=== PATIENT | male | born 1955 | race Caucasian/White ===

== ENCOUNTER → 2017-11-15 | Outpatient (CLI) | payer BC | END | disposition home or self-care (01) | LOC: PCVCIMAG 07:57 | DX: I25.10 Atherosclerotic heart disease of native coronary artery without angina pectoris (principal); I10 Essential (primary) hypertension; E78.00 Pure hypercholesterolemia, unspecified; I42.9 Cardiomyopathy, unspecified; F17.200 Nicotine dependence, unspecified, uncomplicated; Z79.899 Other long term (current) drug therapy; Z79.82 Long term (current) use of aspirin | CPT/HCPCS: 36415; 78452; 93017; A9500 ==

== ENCOUNTER → 2019-05-01 | Outpatient (CLI) | payer BC ==
--- NOTE | 2019-05-01 13:26 | PCVCIMAG ---
APPROVED REPORT Study performed: 05/01/2019 12:40:14 EXAM: Comprehensive 2D, Doppler, and color-flow Echocardiogram Patient Location: Echo lab Status: routine BSA: 2.17 HR: 60 bpmBP: 120/70 mmHg Rhythm: NSR Other Information Study Quality: Good Risk Factors: Cardiac Risk Factors: HTN, Hyperlipidemia, FHX of CAD, FHX of CAD Indications CAD Cardiomyopathy Stent, ID 2D Dimensions IVSd: 14.34 (7-11mm)LVOT Diam: 23.91 (18-24mm) LVDd: 51.16 mm PWd: 12.57 (7-11mm)Ascending Ao: 34.19 (22-36mm) LVDs: 44.96 (25-40mm) Left Atrium: 40.93 (27-40mm) Aortic Root: 36.24 mm LV Single Plane 4CH: 51.79 % LV Single Plane 2CH: 58.14 % Biplane EF: 55.1 % Volumes Left Atrial Volume (Systole) Single Plane 4CH: 56.25 mLSingle Plane 2CH: 40.65 mL LA ESV Index: 23.00 mL/m2 Aortic Valve AoV Peak Piero.: 1.41 m/s AO Peak Gr.: 7.96 mmHgLVOT Max P.05 mmHg LVOT Max V: 1.01 m/s OCTAVIA Vmax: 3.20 cm2 Mitral Valve E/A Ratio: 0.9 MV Decel. Time: 245.97 ms MV E Max Piero.: 0.59 m/s MV A Piero.: 0.68 m/s TDI E/Lateral E': 7.38E/Medial E': 6.56 Medial E' Piero.: 0.09 m/s Lateral E' Piero.: 0.08 m/s Pulmonary Valve PV Peak Gr.: 2.05 mmHg Pulmonary Vein P Vein S: 0.59 m/sP Vein A: 0.45 m/s P Vein D: 0.35 m/sP Vein A Dur.: 83.0 msec P Vein S/D Ratio: 1.69 Left Ventricle The left ventricle is normal size. Mid to basal inferior walll hypokinesis. Mild concentric left ventricular hypertrophy. Left ventricular systolic function is normal. LVEF is 50%. Right Ventricle The right ventricle is normal size. The right ventricular systolic function is normal. Atria The left atrium size is normal. The right atrium size is normal. Aortic Valve The aortic valve is normal in structure. No aortic regurgitation is present. There is no aortic valvular stenosis. Mitral Valve The mitral valve is normal in structure. There is no mitral valve regurgitation noted. No evidence of mitral valve stenosis. Tricuspid Valve The tricuspid valve is normal in structure. There is no tricuspid valve regurgitation noted. Pulmonic Valve The pulmonary valve is normal in structure. There is no pulmonic valvular regurgitation. Great Vessels The aortic root is normal in size. IVC is normal in size and collapses >50% with inspiration. Pericardium There is no pericardial effusion. <Conclusion> The left ventricle is normal size. Mild concentric left ventricular hypertrophy. Left ventricular systolic function is normal. Mid to basal inferior walll hypokinesis. The right ventricle is normal size. The left atrium size is normal. The aortic valve is normal in structure. There is no mitral valve regurgitation noted. There is no tricuspid valve regurgitation noted.
== END | disposition home or self-care (01) ==
LOC: PCVCIMAG 12:18
PROVIDERS: ATTEND Internal Medicine Cardiovascular Disease
DX: I11.9 Hypertensive heart disease without heart failure (principal); I25.10 Atherosclerotic heart disease of native coronary artery without angina pectoris; I25.2 Old myocardial infarction; E78.00 Pure hypercholesterolemia, unspecified; I34.0 Nonrheumatic mitral (valve) insufficiency; E78.5 Hyperlipidemia, unspecified; E66.9 Obesity, unspecified; Z95.5 Presence of coronary angioplasty implant and graft; Z88.8 Allergy status to other drugs, medicaments and biological substances; Z72.0 Tobacco use; Z79.82 Long term (current) use of aspirin; Z79.899 Other long term (current) drug therapy; Z72.89 Other problems related to lifestyle
CPT/HCPCS: 93306